=== PATIENT | male | born 1995 | race Caucasian/White ===

== ENCOUNTER 2016-08-22 12:15 | Emergency (ER) | payer BC ==
[~2016-08-22] VITALS: Ht 185.4 cm; Wt 90.4 kg
[2016-08-22 12:22] VITALS: TEMP 36.9; Ht 185.4 cm; Wt 90.4 kg
[2016-08-22] MEDS ORDERED: [UNRECOGNIZED DRUG - CODE] TD (12:43)
[2016-08-22] MEDS ORDERED: DOXY100C41 PO (12:43)
[2016-08-22] MEDS ORDERED: SODIUM CHLORIDE 0.9% 1000ML 1,000 ML IV ONE (13:00)
[2016-08-22] MEDS ORDERED: XYLOCAINE 1%/SOD BICARB 20 ML VIAL INFIL ONE (13:00)
[2016-08-22] MEDS ORDERED: FENTANYL CITRATE INJ 50 MCG/1 ML 2 ML VIAL IV PRN (13:00)
--- NOTE | 2016-08-22 13:46 | EMERGENCY ROOM VISIT NOTE ---
History Report prepared by Collins: Katheryn Upton Under the Supervision of: Dr. Dennis Chan M.D. First contact with patient: 12:42 Chief Complaint: REFERRED BY DOCTOR Stated Complaint: ABSYS History of Present Illness The patient is a 21 year old male who presents to the Emergency Room with complaints of worsening perirectal abscess pain starting yesterday. He went to [facility] yesterday and was diagnosed with a perirectal abscess. The pain worsened today and he went to [facility] again to get it lanced, but they were unable to do it and he was sent to the ED. He was given doxycycline and a cream by [facility]. He has tried taking long showers to no relief. He had a bowel movement recently which was painful for him. Source of History: patient Onset: yesterday Position: other (perirectal) Quality: other (abscess) Timing: worsening Note: Pt reports pain with bowel movement. Review of Systems All systems have been listed, reviewed, and are negative other than those previously mentioned. Please see Additional Medical History Sheet. Past Medical & Surgical Surgical Problems: (1) H/O wisdom tooth extraction Family History No pertinent family history stated. Social History Smoking Status: Current Some Day Smoker Housing Status: lives with family Current/Historical Medications Scheduled Benzoyl Peroxide-Erythromycin (Benzamycin), 1 APPL TD BID Docusate Sodium (Colace), 100 MG PO BID Doxycycline (Monohydrate) (Monodox), 100 MG PO BID Allergies Coded Allergies: No Known Allergies (Unverified , 08/22/16) Physical Exam Vital Signs Date Time Temp Pulse Resp B/P (MAP) Pulse Ox O2 Delivery O2 Flow Rate FiO2 08/22/16 14:43 97 16 160/70 98 08/22/16 12:22 36.9 94 16 119/74 98 Room Air Physical Exam GENERAL: Patient awake, alert, oriented x 3. Patient follows commands. Patient does not appear toxic. Patient is adequately hydrated and well- nourished. SKIN: No erythema, pallor, cyanosis or rash HEENT: Normal head, pupils equal, reactive to light and accommodation. LUNGS: Clear to auscultation. No wheezes, no rales, no rhonchi. HEART: No murmurs. No gallops. No rubs ABDOMEN: Slight left inguinal adenopathy with tenderness. RECTAL: Quarter to half dollar sized markedly tender abscess in the left perirectal area. EXTREMITIES: No signs of trauma or infection. NEUROLOGIC: Cranial nerves II-XII within normal limits. No gross motor sensory function deficits. Medical Decision & Procedures Medications Administered Medications (Trade) Dose Ordered Sig/Ministerio Route Start Time Stop Time Status Last Admin Dose Admin Sodium Chloride 1,000 ml @ 1,000 mls/hr Q1H ONCE IV 08/22/16 13:00 08/22/16 13:59 DC 08/22/16 13:11 1,000 MLS/HR Fentanyl Citrate (Fentanyl Inj) 100 mcg Q15M PRN IV 08/22/16 13:00 08/22/16 15:07 DC 08/22/16 13:31 100 MCG Procedure Incision & drainage Indication: Perirectal abscess. Location: Left buttocks. Verbal consent was obtained after the risks and benefits were explained, including but not limited to bleeding, scarring, infection, pain, and bone/joint /nerve damage. At this time, the risks of the procedure are less than the risks of not performing the procedure. A time out was taken and the correct patient and site identified. The skin was prepped with betadine and a sterile field set. The wound was anesthetized with 3 cc of 1% lidocaine buffered. Pt also received IV fentanyl for better pain control. A 1.5 cm incision was made with a number 11 blade in the abscess cavity and undermined bluntly with tissue scissors. Blood, but minimal pus material was expressed. Copious irrigation was performed using normal saline. The wound was explored for foreign bodies and none found. Debridement was not performed. Packed with plain gauze and a sterile dressing applied. Detailed wound care instructions and signs and symptoms of worsening infection reviewed with the patient. No complications and the patient tolerated the procedure well. ED Course 1243: Past medical records reviewed. The patient was evaluated in room B10. A complete history and physical examination was performed. 1300: Fentanyl Citrate 100 mcg IV, Lidocaine HCl 20 ml INFIL, NSS 1000 ml @ 1000 mls/hr IV. 1317: Incision and drainage of the perirectal abscess was performed according to the procedure note above. 1348: Upon reevaluation, the patient appeared to have improvement of his symptoms. I discussed today's findings with him. He verbalized agreement of the treatment plan. He was discharged home. Medical Decision Nurses notes reviewed. Medical history sheet reviewed. Differential diagnosis includes but is not limited to: perirectal abscess, perianal abscess. Medication Reconciliation: I attest that I have personally reviewed the patient' s current medication list. Blood pressure Screening: Patient was found to have normal blood pressure on screening and does not require follow up. The patient has a small perirectal abscess in the left buttock. The abscess was not yet pointing but the patient is adamant about having it opened. The patient was given IV fentanyl and lidocaine locally. A 1/2 cm incision was made and only a small amount of pus was released with the blood. I am not completely sure that I reached the abscess cavity. The incision was bluntly dissected and slightly widened but I do not believe further dissection is advisable at this time. The incision was irrigated with saline and packed with plain gauze. The patient was encouraged to use hot sitz baths 3 or 4 times per day. The patient is currently on doxycycline which will be continued. No culture was obtained. Impression Primary Impression: Perirectal abscess Scribe Attestation The scribe's documentation has been prepared under my direction and personally reviewed by me in its entirety. I confirm that the note above accurately reflects all work, treatment, procedures, and medical decision making performed by me. Departure Information Dispostion Home / Self-Care Prescriptions Docusate Sodium (COLACE) 100 Mg Cap 100 MG PO BID, #20 CAP Prov: Dennis Chan M.D. 08/22/16 Patient Instructions ED Deborah Anal Abscess IandSari, My [facility] Additional Instructions Hot sitz bath 3-4 times per day. Colace twice a day. Continue doxycycline as prescribed. 600 mg ibuprofen every 6 hours as needed for pain. Packing should be removed in 2-3 days. If pain continues see a general surgeon.
[2016-08-22] MEDS ORDERED: DOCU-94 PO (13:51)
[2016-08-22 14:43] VITALS: BP 160/70; PULSE 97; O2SAT 98
== END 2016-08-22 14:46 | disposition home or self-care (01) ==
LOC: C.EDB 12:17 → EDBD 12:17 → C.EDB 14:46
DX: K61.1 Rectal abscess (principal); F17.200 Nicotine dependence, unspecified, uncomplicated